=== PATIENT | male | born 1965 | race Caucasian/White ===

== ENCOUNTER 2019-03-08 12:27 | Emergency (ER) | payer MEDICAID, SELFPAY ==
[2019-03-08 12:30] VITALS: BP 233/133; PULSE 83; RESP 18; TEMP 36.4; O2SAT 93; BMI 36.6
[2019-03-08 13:03] VITALS: PULSE 89; RESP 20
[2019-03-08] MEDS: Ipratropium/Albuterol Sulfate 3 ML AMPUL.NEB INHALATION (13:03)
[2019-03-08] MEDS: 0.9% Normal Saline 1,000 ML 150 ML IV (13:07)
[2019-03-08] MEDS: MethylPREDNISolone 125 MG/2 ML Vial IV (13:07)
[2019-03-08 13:09] VITALS: O2SAT 95
--- NOTE | 2019-03-08 13:09 | RAD_ITS ---
STUDY: X-RAY CHEST REASON FOR EXAM: Male, 53 years old. COUGH, HEMOPTYSIS x2 DAYS, DARK RED IN COLOR TECHNIQUE: PA and lateral views of the chest. COMPARISON: None. FINDINGS: EKG electrodes are seen. Increased markings are seen in the lingular segment of the left upper lobe suggestive of focal infiltrate. Minimal increased markings in the lateral aspect of the left upper lobe as well. There is no demonstrated pleural abnormality. Normal size heart. Normal mediastinum and toni. Normal visualized pulmonary arteries. There is atherosclerotic tortuosity of the aortic arch and descending thoracic aorta. There are diffuse degenerative changes of the visualized thoracic spine. Normal visualized ribs, clavicles, and shoulders. There is no demonstrated abnormality of the visualized soft tissue structures of the upper abdomen. RAD/Chest PA and Lateral IMPRESSION: Findings suggestive of focal infiltrate in the lingular segment of the left upper lobe as well as in the lateral aspect of the left upper lobe. Follow-up is recommended. Electronically Signed: Bryant Thomas, at 13:37 EST , Service support ,
[2019-03-08 13:11] LABS: Absolute Lymphocyte Count 1.53 X10^3/uL (0.83-4.51); Absolute Neutrophil Count 9.7 X10^3/uL (2.0-7.7); Basophil# 0.02 X10^3/uL; Basophil% 0.2 % (0-1); Eosinophil# 0.03 X10^3/uL; Eosinophils% 0.3 % (0-5); Hematocrit 53.6 % (40-54); Hemoglobin 17.1 g/dL (13.0-16.5); Lymphocyte # 1.53 X10^3/ul (4.0); Mean Corp Hgb Conc 31.9 g/dL (32-36); Mean Corpuscular Hgb 27.6 pg (27.0-32.0); Mean Corpuscular Volume 86.5 fL (80-94); Mean Platelet Vol. 8.5 fl (6.2-12.0); Monocyte# 0.47 X10^3/uL; NRBC Flagged by Analyzer 0 % (0-5); Neutrophil % 82.2 % (47-70); Platelet Count 150 K/mm3 (150-450); RBC Distribution Width CV 13.2 % (11.6-14.6); RBC Distribution Width SD 41.3 fl (35.1-43.9); White Blood Count 11.8 K/mm3 (4.4-11.0)
[2019-03-08 13:19] LABS: International Normalized Ratio 1.2; Prothrombin Time (Protime)PT. 14.6 SECONDS (11.7-14.9)
[2019-03-08 13:23] LABS: Anion Gap 4 (5-15); BUN 15 mg/dL (7-18); BUN/Creat Ratio 16.4 RATIO (10-20); Calcium,Total 9.2 mg/dL (8.5-10.1); Chloride 104 mmol/L (98-107); Creatinine, Serum 0.92 mg/dL (0.70-1.30); EST Glomerular Filtration Rate 91 mL/min (>60); Est Glom Filt Rate - Afr Amer 110 mL/min (>60); Estimated Creatinine Clearance 99.58 ml/min; Glucose 147 mg/dL (74-106); Potassium 3.5 mmol/L (3.5-5.1); Sodium Level 139 mmol/L (136-145)
[2019-03-08 14:29] VITALS: BP 150/98; PULSE 74; RESP 18; O2SAT 96
--- NOTE | 2019-03-08 14:36 | ED.VISSUMM ---
- ER Visit Summary Date of Service: 03/08/19 Chief Complaint: Cough History of Present Illness: The patient is a 53 M with no primary care physician. He reports he has a cough that began 2 weeks ago. States is productive of clear/yellow sputum. He reports that in the morning the past 2 days he is coughed up bright red blood streaks in his sputum. Patient reports his cough is worse when he lays down. Does report that he is mildly short of breath. States that this is moderate with exertion. There is no change with laying flat. He does not have an inhaler that he used. Physical Examination: Vitals: Stable. Afebrile. General: Well-nourished and well-developed. Head: Normocephalic atraumatic. Neck: Supple, no lymphadenopathy. No JVD. Nontender. Cardiovascular: Regular rate and rhythm. No murmurs. Respiratory: No respiratory distress. Mild wheezing bilaterally right greater than left. Abdominal: Soft, nontender, nondistended, normal bowel sounds. No guarding, rebound, or peritoneal signs. Back: Nontender. Extremities: Nontender, no edema. Skin: Normal color, no rash. Neurologic: Alert and oriented ?3. Cranial nerves II through XII are intact. Normal strength and sensation. Psych: Normal affect. Test Results: CBC shows white count of 11.8 with 82 7 neutrophils and 13 lymphocytes. Hemoglobin is 17.1. Chem-7 shows a glucose 147. Coags are normal. Clinical Impression(s) from Imaging Studies Chest X-Ray 03/08/19 13:09 IMPRESSION: Findings suggestive of focal infiltrate in the lingular segment of the left upper lobe as well as in the lateral aspect of the left upper lobe. Follow-up is recommended. Electronically Signed: Bryant William, at 13:37 EST , Service support , Emergency Department Course and Treatment: Albuterol and Atrovent aerosols. He was given Solu-Medrol IV. Is given doxycycline p.o. He is resting comfortably and feels well. He would like to go home. Treatment Plan: Patient will be discharged with an albuterol MDI, prednisone, doxycycline, and Chantix. Instructed to follow-up Dr. Bharat Warner in 1 week for another exam. Return to the emergency department for any worsening symptoms. Disposition: To home in improved and stable condition. Impression: 1 1. Pneumonia, community-acquired. 2. COPD. This note was generated with [employer] dictation software. It may contain incorrect words, spelling, and punctuation that were not noted in review of the chart prior to signing ED Disposition - Plan for ED Patient: Disposition: Home or Assisted Living Instructions: PNEUMONIA (Adult) Prescriptions: Varenicline Tartrate [Chantix] 1 ea PO BID #1 tab.ds.pk Prescription Printed Doxycycline 100 mg PO BID #20 cap Prescription Printed Prednisone 10 mg PO DAILY #63 tab Prescription Printed Albuterol Inhaler [Ventolin Hfa] 2 puff INHALATION Q4H PRN PRN #1 inhaler PRN Reason: Wheezing Prescription Printed Referrals: Bharat Warner MD [STAFF PHYSICIAN] - 1 Week
[2019-03-08 15:05] VITALS: BP 143/76; PULSE 66; RESP 17; TEMP 37.2; O2SAT 95
[2019-03-08] MEDS: Doxycycline 100 MG CAPSULE PO (15:05)
== END 2019-03-08 15:10 | disposition home or self-care (01) ==
LOC: ED 12:57
PROVIDERS: Emergency Provider Emergency Medicine
DX: J44.0 Chronic obstructive pulmonary disease with (acute) lower respiratory infection (principal); J18.9 Pneumonia, unspecified organism; I10 Essential (primary) hypertension; Z72.0 Tobacco use
CPT/HCPCS: 71046; 80048; 85025; 85610; 85730; 94640; 96361; 96374; 99285; J7030